=== PATIENT | female | born 1945 | race Caucasian/White ===

== ENCOUNTER → 2016-11-25 | Outpatient (CLI) | payer OTHER ==
[~2016-11-25] MED LIST: METO50TA17 PO; SYN100 PO; XRL10 PO
--- NOTE | 2016-11-25 09:30 | DIAGNOSTIC IMAGING REPORT ---
HEPATIC AND SPLENIC ULTRASOUND CLINICAL HISTORY: D45,D69.6 polycythemia COMPARISON STUDY: No previous studies for comparison. FINDINGS: The liver was mildly enlarged measuring 22 cm in length. The liver was of mildly increased echogenicity. There are no focal hepatic masses. The spleen measured 10.4 cm in length. No splenic masses are visualized. IMPRESSION: 1. Mild hepatomegaly. Mild increase in hepatic echogenicity 2. 10.4 cm spleen Electronically signed by: Goran Miller M.D. 11/25/2016 9:29 AM Dictated Date/Time: 11/25/2016 9:27 AM
== END | disposition home or self-care (01) ==
LOC: C.ULTR 08:38
PROVIDERS: ATTEND Internal Medicine Hematology
DX: D45 Polycythemia vera (principal); D69.6 Thrombocytopenia, unspecified

== ENCOUNTER → 2017-01-03 | Outpatient (CLI) | payer OTHER ==
[2017-01-03 13:59] LABS: BASO ABS # 0.11 K/uL (0-0.2); BASOPHIL % 0.9 %; COMPLETE YES; EOSINOPHIL % 0.9 %; HEMATOCRIT 44.9 % (37-47); LARGE PLATELETS 1+; LYMPH ABS # 1.84 K/uL (1.2-3.4); LYMPHOCYTE % 14.8 %; MEAN CELL VOLUME 63.2 fL (80-100); MEAN CORPUSCULAR HEMOGLOBIN 19.3 pg (25-34); MEAN CORPUSCULAR HGB CONC 30.5 g/dl (32-36); MICROCYTOSIS PRESENT; NEUTROPHILS % 64.2 %; PLATELET COUNT 61 K/uL (130-400); PLT ESTIMATE DECREASED; VARIANT LYM ABS # 1.52 K/uL; VARIANT LYMPHOCYTE % 12.2 %; WHITE BLOOD COUNT 12.44 K/uL (4.8-10.8)
[2017-01-03 14:53] LABS: ALT/SGPT 145 U/L (12-78); AST/SGOT 100 U/L (15-37); BLOOD UREA NITROGEN 10 mg/dl (7-18); BUN/CREATININE RATIO 10.6 (10-20); CALCIUM 9.4 mg/dl (8.5-10.1); CARBON DIOXIDE 27 mmol/L (21-32); CHLORIDE 105 mmol/L (98-107); CREATININE 0.93 mg/dl (0.60-1.20); GLUCOSE 141 mg/dl (70-99); POTASSIUM 4.1 mmol/L (3.5-5.1); SODIUM 140 mmol/L (136-145)
[2017-01-03 15:04] LABS: ALB/GLOB RATIO 0.9 (0.9-2); ALKALINE PHOSPHATASE 83 U/L (45-117)
== END | disposition home or self-care (01) ==
LOC: C.LABSPEC 12:03
PROVIDERS: ATTEND Internal Medicine
DX: I10 Essential (primary) hypertension (principal); E03.9 Hypothyroidism, unspecified; D69.6 Thrombocytopenia, unspecified; D45 Polycythemia vera

== ENCOUNTER → 2017-04-28 | Outpatient (CLI) | payer OTHER ==
[2017-04-28 15:51] LABS: THYROID STIMULATING HORMONE 8.22 uIu/ml (0.300-4.500)
== END | disposition home or self-care (01) ==
LOC: C.LABSPEC 14:32
PROVIDERS: ATTEND Internal Medicine
DX: E03.9 Hypothyroidism, unspecified (principal)